=== PATIENT | female | born 1995 | race Hispanic/Latino ===

== ENCOUNTER 2021-08-03 13:24 | Emergency (ER) | payer OTHER, SELFPAY ==
[2021-08-03] MEDS ORDERED: LIDOCAINE 1% W/EPI 1:100,000 MDV 50 ML VIAL ONE (13:32)
[2021-08-03] MEDS ORDERED: LIDOCAINE 1% 20 ML MDV ONE (13:37)
--- NOTE | 2021-08-03 15:34 | ER ---
Nurse's Notes [facility] Name: Melba Mejia Age: 25 yrs Sex: Female : 1995 Arrival Date: 08/03/2021 Time: 13:30 Bed 4 Private MD: Diagnosis: Laceration of the Left Thumb with possible tendon injury Presentation: 08/03 13:34 Chief complaint: Patient states: pt arrives to ER , laceration to left thumb, bleeding iw heavily, direct pressure applied, moved to ER bed 4. Coronavirus screen: At this time, the client does not indicate any symptoms associated with coronavirus-19. Ebola Screen: Patient negative for fever greater than or equal to 101.5 degrees Fahrenheit, and additional compatible Ebola Virus Disease symptoms Patient denies exposure to infectious person. Patient denies travel to an Ebola-affected area in the 21 days before illness onset. No symptoms or risks identified at this time. Complicating Factors: There are no complicating factors for this patient. Initial Sepsis Screen: Does the patient meet any 2 criteria? No. Patient's initial sepsis screen is negative. Does the patient have a suspected source of infection? No. Patient's initial sepsis screen is negative. Risk Assessment: Do you want to hurt yourself or someone else? Patient reports no desire to harm self or others. Onset of symptoms was August 03, 2021. 13:34 Method Of Arrival: Ambulatory iw 13:34 Acuity: JOSEPH 3 iw Historical: - Allergies: 15:23 No Known Allergies; vg1 - Home Meds: 15:23 Vitamin Oral [Active]; vg1 - PMHx: 15:23 None; vg1 - PSHx: 15:23 section; vg1 - Immunization history:: Client reports having NOT received the Covid vaccine. - Social history:: Smoking status: Patient denies any tobacco usage or history of. Screenin:23 Abuse screen: Denies threats or abuse. Nutritional screening: No deficits noted. vg1 Tuberculosis screening: No symptoms or risk factors identified. Fall Risk No fall in past 12 months (0 pts). No secondary diagnosis (0 pts). No IV (0 pts). Ambulatory Aid- None/Bed Rest/Nurse Assist (0 pts). Gait- Normal/Bed Rest/Wheelchair (0 pts) Mental Status- Oriented to own ability (0 pts). Total Mckeon Fall Scale indicates No Risk (0-24 pts). Assessment: 13:45 General: Appears uncomfortable, Behavior is cooperative, crying. Pain: Complains of vg1 pain in palmar aspect of proximal phalanx of left thumb and Left first web space Pain currently is 10 out of 10 on a pain scale. Pain began 30 min ago. Neuro: Grissom Agitation-Sedation Scale (RASS): +1 Restless Level of Consciousness is awake, alert, obeys commands, Oriented to person, place, time, situation. Cardiovascular: Patient's skin is warm and dry. Respiratory: Airway is patent Respiratory effort is even, unlabored. GI: No signs and/or symptoms were reported involving the gastrointestinal system. : No signs and/or symptoms were reported regarding the genitourinary system. EENT: No signs and/or symptoms were reported regarding the EENT system. Derm: laceration to left thumb. Musculoskeletal: Circulation, motion, and sensation intact. Injury Description: Laceration sustained to palmar aspect of proximal phalanx of left thumb and Left first web space is clean, bleeding profusely, with pulsatile bleeding. 14:45 Reassessment: Patient appears in no apparent distress at this time. Patient and/or vg1 family updated on plan of care and expected duration. Pain level reassessed. Patient is alert, oriented x 3, equal unlabored respirations, skin warm/dry/pink. Vital Signs: 15:30 BP 101 / 74; Pulse 70; Resp 16; Pulse Ox 98% on R/A; vg1 ED Course: 13:30 Patient arrived in ED. ss 13:32 Marino Nunes DO is Attending Physician. ms3 13:36 Triage completed. iw 13:51 Jose F Gray PA is PHCP. jmm 13:51 Marino Nunes DO is Attending Physician. jmm 13:51 Yaritza Lawson, RN is Primary Nurse. vg1 13:59 CALLED TRANSF[facility] TRANSFER DENIED BY REP JULIETA DUE TO PT PAST kj1 20 WEEKS. 14:35 Orthoglass splint: Thumb spica splint applied on left forearm. Velcro wrist splint mh5 applied to. 15:23 Patient has correct armband on for positive identification. Bed in low position. Call vg1 light in reach. Side rails up X 1. Adult w/ patient. 15:23 No provider procedures requiring assistance completed. Patient did not have IV access vg1 during this emergency room visit. 15:33 Pavriz Portillo MD is Referral Physician. michaela Administered Medications: 16:29 Drug: Acetaminophen 650 mg Route: PO; jh6 16:33 Follow up: Response: No adverse reaction; Medication administered at discharge. ss Outcome: 15:34 Discharge ordered by . michaela 16:31 Discharged to home ambulatory, with family. ss 16:31 Condition: good 16:31 Discharge instructions given to patient, family, Instructed on discharge instructions, follow up and referral plans. Demonstrated understanding of instructions, follow-up care, Prescriptions given X 1. 16:32 Patient left the ED. ss Signatures: Jose F Gray PA PA jmm Williams, Irene, RN SHARON Lou Fajardo RN RN Beatriz Thayer 5 Jane Lo kj1 Yaritza Lawson, SHARON RN vg1 Marino Nunes DO DO ms3 Karyna Johnston RN RN jh6
--- NOTE | 2021-08-03 15:35 | EDPHYS ---
Physician Documentation [facility] Name: Melba Mejia Age: 25 yrs Sex: Female : 1995 Arrival Date: 08/03/2021 Time: 13:30 Bed 4 Private MD: ED Physician Marino Nunes HPI: 08/03 13:51 This 25 yrs old Female presents to ER via Ambulatory with complaints of jmm Laceration To Hand. 13:51 Onset: The symptoms/episode began/occurred acutely, just prior to arrival. The jmm laceration(s) is(are) located on the palmar aspect of proximal phalanx of left thumb. Onset: The symptoms/episode began/occurred acutely. This is a 25 year old female currently 36 weeks that presents to the ED with a complaint of laceration to the left thumb. Patient accidently cut her thumb on a can lid. Denies other injury. Patient is utd on tetanus immunization. Historical: - Allergies: 15:23 No Known Allergies; vg1 - Home Meds: 15:23 Vitamin Oral [Active]; vg1 - PMHx: 15:23 None; vg1 - PSHx: 15:23 section; vg1 - Immunization history:: Client reports having NOT received the Covid vaccine. - Social history:: Smoking status: Patient denies any tobacco usage or history of. ROS: 13:51 Constitutional: Negative for fever, chills, and weight loss, Cardiovascular: Negative jmm for chest pain, palpitations, and edema, Respiratory: Negative for shortness of breath, cough, wheezing, and pleuritic chest pain. 13:51 Skin: Positive for laceration(s). 13:51 All other systems are negative. Exam: 13:51 Constitutional: This is a well developed, well nourished patient who is awake, alert, jmm and in no acute distress. Head/Face: atraumatic. Eyes: EOMI, no conjunctival erythema appreciated ENT: Moist Mucus Membranes Neck: Trachea midline, Supple Chest/axilla: Normal chest wall appearance and motion. Cardiovascular: Regular rate and rhythm. No edema appreciated Respiratory: Normal respirations, no respiratory distress appreciated Abdomen/GI: Non distended, soft Back: Normal ROM 13:51 Skin: 2.5 cm laceration noted to the base of the 1st phalanx of the left hand. . 13:51 Neuro: Orientation: is normal, Mentation: is normal, Memory: is normal. 13:51 Psych: Behavior/mood is pleasant, cooperative. Vital Signs: 15:30 BP 101 / 74; Pulse 70; Resp 16; Pulse Ox 98% on R/A; vg1 Laceration: 15:31 Wound Repair of 2.5cm ( 1.0in ) subcutaneous laceration to left hand and palmar aspect jmm of proximal phalanx of left thumb. Distal neuro/vascular/tendon intact. Anesthesia: Local anesthetic administered with 5 mls of 1% lidocaine. Wound prep: Moderate cleansing with betadine by me. Skin closed with 5 4-0 Prolene using simple sutures and sterile technique. Patient tolerated well. MDM: 13:51 Patient medically screened. [facility] 15:32 Data reviewed: vital signs, nurses notes. Counseling: I had a detailed discussion with jm the patient and/or guardian regarding: the historical points, exam findings, and any diagnostic results supporting the discharge/admit diagnosis, the need for outpatient follow up, to return to the emergency department if symptoms worsen or persist or if there are any questions or concerns that arise at home. ED course: Patient is unable to flex her left thumb IP joint after procedure. There are some concerns of tendon injury. I discussed this with the hand surgery who recommended splinting the patient and will follow with the patient in clinic on Saturday. Patient will be given oral antibiotics to prevent infection. 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 Patient is scheduled to deliver in 1 week. Patient otherwise given wound infection precautions.. 08/03 14:16 Order name: Thumb Spica Splint; Complete Time: 14:35 [facility] Administered Medications: 16:29 Drug: Acetaminophen 650 mg Route: PO; jh6 16:33 Follow up: Response: No adverse reaction; Medication administered at discharge. Disposition: 22:13 Co-signature as Attending Physician, Marino Nunes DO I was immediately available on-site ms3 in the Emergency Department for consultation in the care of the patient.. Disposition Summary: 08/03/21 15:34 Discharge Ordered Location: Home [facility] Condition: Stable [facility] Diagnosis - Laceration of the Left Thumb with possible tendon injury [facility] Followup: [facility] - With: Parviz Portillo MD - When: 08/07/2021 - Reason: Recheck today's complaints, Continuance of care, Re-evaluation by your physician Discharge Instructions: - Discharge Summary Sheet [facility] - Laceration Care, Adult [facility] Forms: - Medication Reconciliation Form [facility] - Thank You Letter michaela - Antibiotic Education michaela - Prescription Opioid Use [facility] Prescriptions: - Cephalexin 500 mg Oral Capsule - take 1 capsule by ORAL route every 6 hours for 10 days; 40 capsule; Refills: 0, [facility] Product Selection Permitted Signatures: Jose F Gray PA PA jmm Garcia, Victoria, RN RN vg1 Marino Nunes DO DO ms3 Karyna Johnston RN RN jh6 Lou Fajardo RN ss
[2021-08-03] MEDS ORDERED: ACETAMINOPHEN 325 MG TABLET ONE (16:32)
[2021-08-03 18:43] VITALS: BP 139/73; TEMP 99.1; O2SAT 99
== END 2021-08-03 16:32 | disposition home or self-care (01) ==
LOC: ER 13:24
PROC: 0JQK0ZZ Repair Left Hand Subcutaneous Tissue and Fascia, Open Approach (ICD-10-PCS; principal; 2021-08-03)
DX: O9A.213 Injury, poisoning and certain other consequences of external causes complicating pregnancy, third trimester (principal); S61.012A Laceration without foreign body of left thumb without damage to nail, initial encounter; Z3A.36 36 weeks gestation of pregnancy; W26.8XXA Contact with other sharp object(s), not elsewhere classified, initial encounter
CPT/HCPCS: 99283